=== PATIENT | male | born 1985 | race Caucasian/White ===

== ENCOUNTER 2018-12-18 08:08 | Emergency (ER) | payer SELFPAY ==
[~2018-12-18] VITALS: Ht 182.9 cm; Wt 100.0 kg
[~2018-12-18 08:08] MED LIST: CHLO118L3 TOP; CLIN300C10 PO; NAPR-985 PO
[2018-12-18 08:11] VITALS: BP 173/90; PULSE 90; RESP 18; Ht 182.9 cm; Wt 100.0 kg
[2018-12-18] MEDS ORDERED: CLINDAMYCIN 300 MG CAP PO ONE (09:00)
[2018-12-18] MEDS ORDERED: HYDROCODONE/APAP (5/325) TAB PO ONE (09:00)
== END 2018-12-18 11:16 | disposition left against medical advice (07) ==
LOC: FTE 08:08
DX: K04.7 Periapical abscess without sinus (principal); F17.210 Nicotine dependence, cigarettes, uncomplicated
CPT/HCPCS: 71045; 80048; 84484; 85025; 93005